=== PATIENT | male | born 1965 | race Caucasian/White ===

== ENCOUNTER 2022-05-12 09:01 | Outpatient (CLI) | payer OTHER, SELFPAY ==
--- NOTE | 2022-05-12 12:00 | CRLHL7_ITS ---
For Patients: As a result of the Century Cures Act, medical imaging exams and procedure reports are released immediately into your electronic medical record. You may view this report before your referring provider. If you have questions, please contact your health care provider. HISTORY: 57-year-old male. Type 2 diabetes. Eosinophilic esophagitis. Early satiety. Constipation. GERD. Type 2 diabetes. Evaluate gastric emptying. TECHNIQUE: 1.07 millicurie of [id number] colloid was administered orally in 4 ounces of Egg Beaters with 2 slices of bread and a glass of water. Images of the stomach and abdomen were obtained in the anterior and posterior projections for 4 hours. TIME ACTIVITY AND PERCENT REMAINING 0 minutes: 100.0% 60 minutes: 93.5% 90 minutes: 84.5% 120 minutes: 82.8% 240 minutes: 23.7% IMPRESSION: The half-time of gastric emptying is between 2 to 4 hours. This is delayed. Dictated by Memo Mcdaniel MD @ 05/12/2022 4:25:55 PM (Electronically Signed)
== END 2022-05-12 09:02 | disposition home or self-care (01) ==
LOC: NM 09:05
PROVIDERS: PCP Nurse Practitioner Family; Visit Provider Nurse Practitioner Gerontology
DX: K20.0 Eosinophilic esophagitis (principal); K21.9 Gastro-esophageal reflux disease without esophagitis; K59.00 Constipation, unspecified; R68.81 Early satiety
CPT/HCPCS: 78264; A9541